=== PATIENT | male | born 1990 | race Caucasian/White ===

== ENCOUNTER 2019-06-07 13:20 | Outpatient (CLI) | payer BC, SELFPAY ==
--- NOTE | ~2019-06-07 | XR_ITS ---
EXAMINATION: XR finger 3rd RT min 2V DATE: 06/07/2019 13:43 INDICATION: Fracture and osteomyelitis of the right third proximal phalanx. TECHNIQUE: Dorsal palmar, lateral and 2 oblique views of the right third digit were obtained COMPARISON: None FINDINGS: Continued progressive healing of a comminuted fractures of the right third proximal phalanx which rem ains in near-anatomic alignment. There continues to be increased bone formation along the margins of a central lucent defect extending across the distal diaphysis at the site of previously removed fixat ion screws which was concerning for osteomyelitis. There is solid bone fusion both the dorsal and pal mar to the lucent defect. No new cortical erosions or progressive osteolysis to suggest ongoing osteo myelitis. Again seen are a couple fixation screws without surrounding lucency at a healed fracture of the second proximal phalanx which is in essentially anatomic alignment. No new fractures identified. Joint spaces remain normal. IMPRESSION: 1. 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 No evident ongoing osteomyelitis. Reviewed, dictated and finalized at location A. [facility] IMPRESSION: 1. Healing comminuted fracture of the third proximal phalanx with continued new bone formation at the margins of a central lytic defect likely related to prio r ostomy myelitis at the site of since removal of fixation screws. No evident o ngoing osteomyelitis.
== END 2019-06-07 13:21 | disposition home or self-care (01) ==
LOC: ANHIMG 13:24
PROVIDERS: Visit Provider Plastic Surgery
DX: S62.612D Displaced fracture of proximal phalanx of right middle finger, subsequent encounter for fracture with routine healing (principal)
CPT/HCPCS: 73140